=== PATIENT | female | born 1975 | race Caucasian/White ===

== ENCOUNTER 2017-09-22 22:25 | Emergency (ER) | payer OTHER ==
[~2017-09-22] VITALS: Ht 157.5 cm; Wt 58.5 kg
[~2017-09-22 22:25] MED LIST: CAMBIA50 MG; NEURONTIN300 MG; NORCO 10MG-325MG1 EA; Z.0.ATIVAN1 MG PO; Z.0.PREMARIN1.25 MG PO; Z.0.ZOLOFT50 MG PO
--- OUTSIDE RECORDS SUMMARY | 2017-09-22 22:27 | XMS REPORT | Summary of Care ---
Author Author MIRNA Mcguire, FADY Organization Unknown Address [facility] Phone Unavailable Care Team Providers Care [employer] Name Role Phone FADY BRADLEY M.D. Unavailable Unavailable KEE NESBITT MD Unavailable Unavailable Unavailable Unavailable Functional Status Name Dates Details Functional status health issues are not documented Status: Name Dates Details Cognitive status health issues are not documented Status: Problems Name Dates Details Current Smoker Status: Active Dyspareunia (625.0) Status: Active Symptoms of urinary tract infection (788.99, R39.9) Status: Active Bruising (924.9, T14.8XXA) Status: Active Pelvic pain (R10.2) Status: Active Pain and other symptoms associated with female genital organs (625.9, N94.9) Status: Active Visit for screening mammogram (V76.12, Z12.31) Status: Active Anemia due to antineoplastic chemotherapy (285.3, 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.81) Status: Active Anemia (285.9, D64.9) Status: Active Encounter to discuss test results (V65.49, Z71.89) Status: Active Menopause (627.2, Z78.0) Status: Active Water retention (276.69, R60.9) Status: Active Edema of both feet (782.3, R60.0) Status: Active Fracture of 5th metatarsal (825.25, S92.353A) Status: Active Anxiety (300.00, F41.9) Status: Active Boxers fracture (815.00, S62.339A) Status: Active Pain of right hand (729.5, M79.641) Status: Active Closed displaced fracture of neck of fifth metacarpal bone of right hand, initial encounter (815.04, S62.336A) Status: Active Medications Name Dates Details Gabapentin 300 MG Oral Capsule TAKE 1 CAPSULE TWICE DAILY. * Start : 30-Mar-2013 Active LORazepam 1 MG Oral Tablet TAKE 1 TABLET BY MOUTH EVERY 6 HOURS NEEDED FOR ANXIETY * Quantity: 120 Refills: 0 FADY BRADLEY M.D. * Start : 28-Jun-2017 Active Duavee 0.45-20 MG Oral Tablet TAKE 1 TABLET PO DAILY. * Quantity: 30 Refills: 11 FADY BRADLEY M.D. * Start : 07-Sep-2016 Active HydroCHLOROthiazide 25 MG Oral Tablet take 1 tablet po qd * Quantity: 90 Refills: 3 BRADLEYCydney Mcguire, FADY * Start : 07-Sep-2016 Active Furosemide 20 MG Oral Tablet TAKE 1 TABLET BY MOUTH DAILY UNTIL FLUID SWELLING GONE,THEN 2 TABLETS TWICE A WEEK * Quantity: 30 Refills: 0 FADY BRADLEY M.D. * Start : 05-Jul-2017 Active Sertraline HCl - 100 MG Oral Tablet TAKE 2 TABLETS BY MOUTH DAILY EVERY MORNING * Quantity: 60 Refills: 0 FADY BRADLEY M.D. * Start : 13-Sep-2017 Active Allergies and Adverse Reactions Name Dates Details Penicillins (Allergy) Status: Active Past Medical History Name Dates Details Anxiety (300.00, F41.9) Status: Active Procedures Procedure Dates Details [U] XRAY WRIST MIN 3 VWS RIGHT 47546 Date: 30-Aug-2017 History of Hysterectomy Completed History of Tubal ligation Completed History of Cyst excision Completed Immunization Name Dates Details Immunizations not documented Family History Name Dates Details Family history of diabetes mellitus (V18.0, Z83.3) Comments: Family History Status: Active Family history of Heart trouble (429.9, I51.9) Comments: Family History Status: Active Family history of hypertension (V17.49, Z82.49) Comments: Family History Status: Active Family history of arthritis (V17.7, Z82.61) Comments: Family History Status: Active Family history of malignant neoplasm (V16.9, Z80.9) Comments: Family History Status: Active Family history of cerebrovascular accident (CVA) (V17.1, Z82.3) Comments: Family History Status: Active Family history of tuberculosis (V18.8, Z83.1) Comments: Family History Status: Active Social History Name Dates Details - Status: Name Dates Details Smoker. current status unknown Vital Signs Date Test Result Details No Known Vitals to report Results Date Description Value Details [id number] [U] XRAY HAND MIN 3 VWS RIGHT [id number] XR HAND MIN 3 VWS RIGHT Images acquired, not reported on this accession number. [id number] [U] XRAY HAND MIN 3 VWS RIGHT [id number] XR HAND MIN 3 VWS RIGHT Images acquired, not reported on this accession number. [id number] [U] XRAY HAND MIN 3 VWS RIGHT [id number] XR HAND MIN 3 VWS RIGHT Images acquired, not reported on this accession number. Plan of Care Name Dates Details Planned Observations Planned Goals not documented Planned Encounters Appointment; PEYTON OSORIO M.D. On: 27-Sep-2017 10:45 Interventions Provided Medication Changes* Sertraline HCl - 100 MG Oral Tablet - Renew Instructions Name Dates Details Instructions not documented Encounters Appointment; FADY BRADLEY M.D. Encounter Diagnosis: Problem not documented On: 16-Apr-2016 11:15 Appointment; Jcarlos Kirk M.D. Encounter Diagnosis: Problem not documented On: 04-May-2016 13:30 Appointment; FADY BRADLEY M.D. Encounter Diagnosis: Problem not documented On: 07-Sep-2016 8:30 Appointment; MICKEY NUR M.D. Encounter Diagnosis: Problem not documented On: 30-Aug-2017 13:00 Appointment; PEYTON OSORIO M.D. Encounter Diagnosis: Problem not documented On: 06-Sep-2017 9:45
[2017-09-22 23:10] LABS: BASOPHILS % 0.6 % (0.0-1.0); EOSINOPHILS # (AUTO) 0.1 (0.0-0.4); EOSINOPHILS % 1.9 % (0.0-6.0); HEMATOCRIT 38.3 % (34.2-44.1); HEMOGLOBIN 13.5 g/dL (12.0-16.0); LYMPHOCYTES # (AUTO) 2.4 (1.0-3.2); LYMPHOCYTES % 45.7 % (18.0-39.1); MEAN CORPUSCULAR HEMOGLOBIN 30.6 pg (28-32); MEAN CORPUSCULAR HGB CONC 35.2 g/dL (31-35); MEAN CORPUSCULAR VOLUME 86.8 fL (81-99); MONOCYTES # (AUTO) 0.3 (0.2-0.8); MONOCYTES % 6.6 % (4.4-11.3); NEUTROPHILS # (AUTO) 2.3 (2.1-6.9); PLATELET COUNT 247 x10e3/uL (140-360); RED BLOOD COUNT 4.41 x10e6/uL (3.6-5.1); RED CELL DISTRIBUTION WIDTH 12.2 % (11.7-14.4)
[2017-09-22 23:31] LABS: ALANINE AMINOTRANSFERASE 11 IU/L (0-55); ALBUMIN 4.1 g/dL (3.5-5.0); ALBUMIN/GLOBULIN RATIO 1.2 (0.8-2.0); ALKALINE PHOSPHATASE 73 IU/L (40-150); ANION GAP 14.7 mmol/L (8-16); BLOOD UREA NITROGEN 16 mg/dL (7-26); BUN/CREATININE RATIO 19 (6-25); CARBON DIOXIDE 25 mmol/L (22-29); CHLORIDE 105 mmol/L (98-107); CREATINE KINASE 53 IU/L (29-168); CREATININE, SERUM 0.84 mg/dL (0.57-1.11); EST GLOMERULAR FILTRATION RATE > 60 ML/MIN (60-); GLUCOSE 107 mg/dL (74-118); POTASSIUM 3.7 mmol/L (3.5-5.1); SODIUM 141 mmol/L (136-145)
--- NOTE | 2017-09-22 23:53 | Diagnostic Imaging Report ---
EXAMINATION: CHEST SINGLE (PORTABLE) INDICATION: Shortness of breath. COMPARISON: None FINDINGS: TUBES and LINES: None. LUNGS: Lungs are well inflated. Lung bases are increased in density due to soft tissue attenuation. There is no evidence of pneumonia or pulmonary edema. PLEURA: No pleural effusion or pneumothorax. HEART AND MEDIASTINUM: The cardiomediastinal silhouette is unremarkable. BONES AND SOFT TISSUES: No acute osseous lesion. Soft tissues are unremarkable. UPPER ABDOMEN: No free air under the diaphragm. IMPRESSION: No acute thoracic abnormality. Signed by: Dr. Krzysztof Stock M.D. on 09/22/2017 11:50 PM
[2017-09-23 00:38] VITALS: BP 138/89
== END 2017-09-23 00:44 | disposition home or self-care (01) ==
LOC: ER 22:25
DX: R00.2 Palpitations (principal)
CPT/HCPCS: 36415; 71045; 80053; 82550; 82553; 84484; 85025; 85379; 93005; 99283